=== PATIENT | female | born 1995 | race Caucasian/White ===

== ENCOUNTER 2018-11-19 12:28 | Emergency (ER) | payer OTHER ==
[2018-11-19] MEDS ORDERED: NA CHLORIDE 0.9% 1,000 ML ONE (14:16)
[2018-11-19 14:26] LABS: Absolute Monocytes 0.5 K/uL (0.1-1.3); Absolute Neutrophil 9.6 K/uL (1.8-8.0); Basophils % 0.1 % (0-1.3); Hematocrit 31.2 % (36.0-45.0); Lymphocytes % 8.7 % (15.3-44.8); MPV 10.1 fL (7.6-11.3); Monocytes % 4.3 % (3.3-12.3); RBC Red Blood Cell Count 3.44 M/uL (3.86-4.86)
[2018-11-19 14:43] LABS: ALT/SGPT 59 U/L (12-78); AST/SGOT 56 U/L (15-37); Albumin 3.1 g/dL (3.4-5.0); Alkaline Phosphatase 83 U/L (45-117); BUN Blood Urea Nitrogen 7 mg/dL (7-18); Bicarbonate 23 mmol/L (21-32); Bilirubin Direct 0.4 mg/dL (0-0.2); Bilirubin Total 0.8 mg/dL (0.2-1.0); Glucose Level 81 mg/dL (74-106); Lipase 65 U/L (73-393); Potassium 3.7 mmol/L (3.5-5.1); Protein, Total 6.7 g/dL (6.4-8.2); Sodium Level 142 mmol/L (136-145)
[2018-11-19 14:54] LABS: Urine Blood TRACE (NEG); Urine Glucose NEGATIVE (NEG); Urine Protein 1+ (NEG)
[2018-11-19 15:04] LABS: Urine RBC <5 /HPF (NONE SEEN)
[2018-11-19 15:05] LABS: Urine Bacteria 20-50 /HPF (<20); Urine Mucus 1+ /HPF (NONE SEEN)
[2018-11-19 15:07] LABS: Urine Culture Reflex Order REFLEXED
--- NOTE | 2018-11-19 15:07 | RAD REPORT ---
EXAM DESCRIPTION: US - Abdomen Exam Limited - 11/19/2018 2:26 pm CLINICAL HISTORY: Abdominal pain. COMPARISON: None. FINDINGS: The gallbladder is distended. Multiple gallstones are present. The gallbladder wall is upp er limits normal thickness Common bile duct measures 7 millimeters IMPRESSION: Cholelithiasis with gallbladder distention Mild dilatation of the common bile duct may indicate a nonvisualized stone within the duct
--- NOTE | 2018-11-19 15:37 | EDPHYS ---
Physician Documentation [facility] Name: Rosalia Sheehan Age: 23 yrs Sex: Female : 1995 Arrival Date: 11/19/2018 Time: 12:30 Bed 8 Private MD: Michael Beltran B ED Physician Shadi Daniels HPI: 11/19 15:00 This 23 yrs old Female presents to ER via Wheelchair with complaints of pm1 Abdominal pain. 15:00 The patient presents with abdominal pain in the epigastric area. Onset: The pm1 symptoms/episode began/occurred today. The symptoms radiate to back. Associated signs and symptoms: Pertinent positives: nausea and vomiting, Pertinent negatives: chest pain, constipation, diarrhea, fever, shortness of breath. The symptoms are described as sharp. Modifying factors: The symptoms are alleviated by nothing, the symptoms are aggravated by Onset 2 hours after eating. Severity of pain: in the emergency department the pain has improved mildly, is a 8 / 10. The patient has experienced similar episodes in the past, a few times, prior to , but did not last as long. Patient evaluated by L\T\D prior to arrival and cleared for evaluation in the ER. . care with Dr. Beltran. IUP with U/S OB Complete on 11/01/2018. 18 weeks and 5 days. Historical: - Allergies: 12:38 No Known Allergies; sv - PMHx: 12:38 None; sv - PSHx: 12:38 None; sv - Immunization history:: Flu vaccine is not up to date. - Social history:: Smoking status: Patient/guardian denies using tobacco. - Ebola Screening: : No symptoms or risks identified at this time. ROS: 15:00 Constitutional: Negative for fever, chills, and weight loss, Eyes: Negative for injury, pm1 pain, redness, and discharge, ENT: Negative for injury, pain, and discharge, Neck: Negative for injury, pain, and swelling, Cardiovascular: Negative for chest pain, palpitations, and edema, Respiratory: Negative for shortness of breath, cough, wheezing, and pleuritic chest pain. 15:00 Back: Negative for injury and pain, : Negative for injury, bleeding, discharge, and swelling, MS/Extremity: Negative for injury and deformity, Skin: Negative for injury, rash, and discoloration, Neuro: Negative for headache, weakness, numbness, tingling, and seizure. 15:00 Abdomen/GI: Positive for abdominal pain, nausea and vomiting, Negative for diarrhea. Exam: 15:00 Constitutional: This is a well developed, well nourished patient who is awake, alert, pm1 and in no acute distress. Head/Face: Normocephalic, atraumatic. Eyes: Pupils equal round and reactive to light, extra-ocular motions intact. Lids and lashes normal. Conjunctiva and sclera are non-icteric and not injected. Cornea within normal limits. Periorbital areas with no swelling, redness, or edema. ENT: Nares patent. No nasal discharge, no septal abnormalities noted. Tympanic membranes are normal and external auditory canals are clear. Oropharynx with no redness, swelling, or masses, exudates, or evidence of obstruction, uvula midline. Mucous membranes moist. Neck: Trachea midline, no thyromegaly or masses palpated, and no cervical lymphadenopathy. Supple, full range of motion without nuchal rigidity, or vertebral point tenderness. No Meningismus. Chest/axilla: Normal chest wall appearance and motion. Nontender with no deformity. No lesions are appreciated. Cardiovascular: Regular rate and rhythm with a normal S1 and S2. No gallops, murmurs, or rubs. Normal PMI, no JVD. No pulse deficits. Respiratory: Lungs have equal breath sounds bilaterally, clear to auscultation and percussion. No rales, rhonchi or wheezes noted. No increased work of breathing, no retractions or nasal flaring. 15:00 Back: No spinal tenderness. No costovertebral tenderness. Full range of motion. Skin: Warm, dry with normal turgor. Normal color with no rashes, no lesions, and no evidence of cellulitis. MS/ Extremity: Pulses equal, no cyanosis. Neurovascular intact. Full, normal range of motion. 15:00 Abdomen/GI: Inspection: gravid appearance, is noted, Bowel sounds: normal, Palpation: soft, moderate abdominal tenderness, in the epigastric area and right upper quadrant, rebound tenderness, is not appreciated. 15:00 Neuro: Orientation: is normal, Motor: is normal, moves all fours. Vital Signs: 12:39 BP 107 / 61; Pulse 73; Resp 16; Temp 98.5; Pulse Ox 100% ; Weight 74.84 kg; Height 5 sv ft. 3 in. (160.02 cm); Pain 8/10; 12:39 Body Mass Index 29.23 (74.84 kg, 160.02 cm) sv MDM: 13:37 Patient medically screened. pm1 15:35 Data reviewed: vital signs. Data interpreted: Pulse oximetry: on room air is 100 %. pm1 Interpretation: normal. Counseling: I had a detailed discussion with the patient and/or guardian regarding: the historical points, exam findings, and any diagnostic results supporting the discharge/admit diagnosis, lab results, radiology results, the need to transfer to another facility, for higher level of care, [facility] does not immediately have the required specialist. 16:00 Physician consultation: [facility] OB Nate was contacted at 15:51, regarding regarding pm1 transfer, patient's condition, and will see patient. 16:00 ED course: Transfer for lack of GI and high heel builder. pm1 11/19 13:43 Order name: Hepatic Function; Complete Time: 15:02 pm1 11/19 13:43 Order name: Basic Metabolic Panel; Complete Time: 15:02 pm1 11/19 13:43 Order name: CBC with Diff pm1 11/19 13:43 Order name: Lipase; Complete Time: 15:02 pm1 11/19 13:43 Order name: Urine Microscopic Only; Complete Time: 15:09 pm1 11/19 14:33 Order name: CBC Smear Scan [facility] 11/19 13:43 Order name: IV Saline Lock; Complete Time: 14:13 pm11/19 13:43 Order name: US Abdomen Limited; Complete Time: 15:09 pm1 11/19 14:47 Order name: Urine Dipstick--Ancillary (enter results); Complete Time: 15:02 eb 11/19 14:47 Order name: Urine --Ancillary (enter results); Complete Time: 15:02 eb 11/19 13:43 Order name: Labs collected and sent; Complete Time: 14:13 pm1 11/19 13:43 Order name: Urine Dipstick-Ancillary (obtain specimen); Complete Time: 14:49 pm11/19 14:37 Order name: NPO; Complete Time: 14:42 pm1 Administered Medications: 14:42 Drug: NS 0.9% 1000 ml Route: IV; Rate: 1000 ml; Site: right antecubital; sg 15:40 Follow up: Response: No adverse reaction; IV Status: Completed infusion; IV Intake: sg 990ml 15:50 Drug: Phenergan 12.5 mg Route: IVP; Site: right antecubital; sg 15:50 Drug: morphine 4 mg Route: IVP; Site: right antecubital; sg 15:50 Drug: Rocephin 1 grams Route: IV; Rate: calculated rate; Site: right antecubital; sg Disposition: 11/19/18 15:36 Transfer ordered to [facility]. Diagnosis is Choledocholithiasis. - Reason for transfer: Higher level of care. - Accepting physician is [facility]. - Condition is Stable. - Problem is new. - Symptoms have improved. Addendum: 11/22/2018 07:43 Co-signature as Attending Physician, Shadi Daniels MD I agree with the assessment and k dr plan of care. Signatures: Dispatcher [employer] Rosalia Mallory RN RN Mau Larsen RN RN sg Shadi Daniels MD MD [facility] Gertrudis Reyes RN RN aa5 Jose Fagan NP DIAMOND WHEEL EDGER pm1 Corrections: (The following items were deleted from the chart) 11/19 16:52 15:36 11/19/2018 15:36 Transfer ordered to [facility]. Diagnosis is aa5 Choledocholithiasis. Reason for transfer: Higher level of care. Accepting physician is [facility]. Condition is Stable. Problem is new. Symptoms have improved. pm1
--- NOTE | 2018-11-19 15:37 | ER ---
Nurse's Notes [facility] Name: Rosalia Sheehan Age: 23 yrs Sex: Female : 1995 Arrival Date: 11/19/2018 Time: 12:30 Bed 8 Private MD: Michael Beltran B Diagnosis: Choledocholithiasis Presentation: 11/19 12:36 Presenting complaint: Patient states: epigastric pain that radiates to the back, pt is sv 21 wks and was cleared in L\T\D today. Transition of care: patient was not received from another setting of care. Onset of symptoms was November 19, 2018 at 00:30. Care prior to arrival: Care prior to arrival: Medication(s) given: Phenergan, 50 mg IM given in L\T\D. 12:36 Method Of Arrival: Wheelchair sv 12:36 Acuity: CESAR 3 sv 14:15 Risk Assessment: Do you want to hurt yourself or someone else? Patient reports no hb desire to harm self or others. Initial Sepsis Screen: Does the patient meet any 2 criteria? No. Patient's initial sepsis screen is negative. Does the patient have a suspected source of infection? No. Patient's initial sepsis screen is negative. Historical: - Allergies: 12:38 No Known Allergies; sv - PMHx: 12:38 None; sv - PSHx: 12:38 None; sv - Immunization history:: Flu vaccine is not up to date. - Social history:: Smoking status: Patient/guardian denies using tobacco. - Ebola Screening: : No symptoms or risks identified at this time. Screenin:13 Abuse screen: Denies threats or abuse. Denies injuries from another. Nutritional hb screening: No deficits noted. Tuberculosis screening: No symptoms or risk factors identified. Fall Risk None identified. Assessment: 14:01 General: Appears in no apparent distress. Behavior is calm, cooperative. Pain: Pain hb currently is 8 out of 10 on a pain scale. Neuro: Level of Consciousness is awake, alert, obeys commands, Oriented to person, place, time, situation. Cardiovascular: Capillary refill < 3 seconds Patient's skin is warm and dry. Respiratory: Airway is patent Respiratory effort is even, unlabored, Respiratory pattern is regular, symmetrical, Breath sounds are clear bilaterally. GI: Abdomen is non-distended, Bowel sounds present X 4 quads. Abd is soft and non tender X 4 quads. Reports upper abdominal pain, nausea. : No signs and/or symptoms were reported regarding the genitourinary system. EENT: No signs and/or symptoms were reported regarding the EENT system. Derm: Skin is intact, is healthy with good turgor. Musculoskeletal: No signs and/or symptoms reported regarding the musculoskeletal system. 15:40 Reassessment: Patient appears in no apparent distress at this time. Patient and/or sg family updated on plan of care and expected duration. Pain level reassessed. Patient is alert, oriented x 3, equal unlabored respirations, skin warm/dry/pink. awaiting acceptance at receiving facility at this time, pt and pt daughter stated understanding Patient states symptoms have not improved. 17:17 Reassessment: Patient appears in no apparent distress at this time. Patient and/or sg family updated on plan of care and expected duration. Pain level reassessed. pt dark colored leather like sandals were given to security threat analyst due to pt left the sandal behind during transfer to [facility]. Vital Signs: 12:39 BP 107 / 61; Pulse 73; Resp 16; Temp 98.5; Pulse Ox 100% ; Weight 74.84 kg; Height 5 sv ft. 3 in. (160.02 cm); Pain 8/10; 12:39 Body Mass Index 29.23 (74.84 kg, 160.02 cm) sv ED Course: 12:30 Patient arrived in ED. as 12:31 Michael Beltran MD is Private Physician. as 12:37 Triage completed. sv 12:39 Arm band placed on. sv 13:32 Jose Fagan NP is PHCP. pm1 13:32 Shadi Daniels MD is Attending Physician. pm1 14:13 Patient has correct armband on for positive identification. Placed in gown. Bed in low hb position. Call light in reach. Side rails up X 1. 14:13 Inserted saline lock: 20 gauge in right antecubital area, using aseptic technique. hb Blood collected. 14:27 US Abdomen Limited In Process Unspecified. EDMS 14:27 Ultrasound completed. Patient moved back from ultrasound. aa4 14:27 Mau Larsen, BRADLEY is Primary Nurse. sg 15:39 initiated a transfer with Alisia at the [facility] transfer center. eb 15:51 connected the agronomy manager doctor from [facility] with Jose MARTINEZ for patient transfer consulation.eb 15:58 administrative approval given by Alisia Akers Nursing Assistant, Dr. Sullivan has eb accepted the patient to go to the L\T\D/ Report to be called to [phone]. 16:16 No provider procedures requiring assistance completed. Patient transferred, IV remains sg in place. intact, No redness/swelling at site. Administered Medications: 14:42 Drug: NS 0.9% 1000 ml Route: IV; Rate: 1000 ml; Site: right antecubital; sg 15:40 Follow up: Response: No adverse reaction; IV Status: Completed infusion; IV Intake: sg 990ml 15:50 Drug: Phenergan 12.5 mg Route: IVP; Site: right antecubital; sg 15:50 Drug: morphine 4 mg Route: IVP; Site: right antecubital; sg 15:50 Drug: Rocephin 1 grams Route: IV; Rate: calculated rate; Site: right antecubital; sg Intake: 15:40 IV: 990ml; Total: 990ml. sg Outcome: 15:36 ER care complete, transfer ordered by MD. pm1 16:16 Transferred by ground EMS to [facility], Transfer form sg completed. 16:16 Condition: stable 16:16 Instructed on follow up and referral plans. the need for transfer, safety practices, Demonstrated understanding of instructions. 16:52 Patient left the ED. aa5 Signatures: Dispatcher [employer] EDRosalia Disla RN RN sv Gay, Steven, RN RN sg Martinez, Amelia as Frazier, Amanda aa4 Gertrudis Reyes RN RN aa5 Jose Fagan NP MANAGER OF PATIENT pm1 Tabby Santillan RN RN hb Botello, Elizabeth eb Corrections: (The following items were deleted from the chart) 12:39 12:36 Care prior to arrival: kenny cox
[2018-11-19] MEDS ORDERED: PROMETHAZINE 25 MG/ML VIAL ONE (15:57)
[2018-11-19] MEDS ORDERED: MORPHINE 4 MG/ML SYR ONE (15:58)
[2018-11-19] MEDS ORDERED: CEFTRIAXONE/SWI 1gm 1 GM/10 ML SYR ONE (15:58)
[2018-11-19 16:57] VITALS: BP 107/61; TEMP 98.5; O2SAT 100
[2018-11-19 17:15] LABS: Blood Morphology Comment NOT SEEN (NOT SEEN); Platelet Estimate ADEQ; Urine White Blood Cell Casts OK
== END 2018-11-19 16:52 | disposition short-term general hospital (02) ==
LOC: ER 12:28
DX: K80.50 Calculus of bile duct without cholangitis or cholecystitis without obstruction (principal); Z3A.18 18 weeks gestation of pregnancy
CPT/HCPCS: 36415; 76705; 80048; 80076; 81003; 81015; 81025; 83690; 85025; 96361; 96374; 96375; 99285; J0696; J2550; J7030

== ENCOUNTER 2019-03-23 00:16 | Inpatient (IN) | payer OTHER ==
--- OUTSIDE RECORDS SUMMARY | 2019-03-23 04:15 | XMS REPORT ---
:1995 [facility] Address [address] [place] [address] [place] [id number] Care Team Providers Name Role Phone Unavailable Unavailable Unavailable Problems This patient has no known problems. Allergies, Adverse Reactions, Alerts This patient has no known allergies or adverse reactions. Medications This patient has no known medications.
[2019-03-23] MEDS ORDERED: MEPERIDINE HCL 25 MG/0.5 ML IV PRN (04:26)
[2019-03-23] MEDS ORDERED: PROMETHAZINE 25 MG/ML VIAL IM PRN (04:26)
[2019-03-23] MEDS ORDERED: CARBOPROST TROME 250 MCG/ML IM PRN (04:26)
[2019-03-23] MEDS ORDERED: METHYLERGONOVINE 0.2MG/ML AMP IM PRN (04:26)
[2019-03-23] MEDS ORDERED: Ringers Lactate 1,000 ML IV PRN (04:26)
[2019-03-23] MEDS ORDERED: OXYTOCIN/LR 20 UNIT/1,000 ML BAG IV SCH ×2 (05:00→11:00)
[2019-03-23] MEDS ORDERED: Ringers Lactate 1,000 ML IV SCH (05:00)
[2019-03-23 05:44] VITALS: BMI 31.3
[2019-03-23 07:07] LABS: RPR Titer ND
[2019-03-23 07:11] LABS: Absolute Lymphocytes (CBC) 1.7 K/uL (0.7-4.9); Absolute Monocytes 0.4 K/uL (0.1-1.3); Absolute Neutrophil 4.2 K/uL (1.8-8.0); Basophils % 0.4 % (0-1.3); Eosinophils % 0.9 % (0-4.4); Hematocrit 31.7 % (36.0-45.0); Lymphocytes % 26.3 % (15.3-44.8); MPV 10.8 fL (7.6-11.3); Monocytes % 5.9 % (3.3-12.3); RBC Red Blood Cell Count 3.49 M/uL (3.86-4.86)
[2019-03-23 07:15] LABS: Urine Appearance CLOUDY; Urine Bilirubin NEGATIVE (NEG); Urine Blood NEGATIVE (NEG); Urine Color YELLOW; Urine Glucose NEGATIVE (NEG); Urine Protein NEGATIVE (NEG); Urine Specific Gravity 1.015 (1.005-1.030)
[2019-03-23 07:25] LABS: Urine Microscopic Reflex ORDER UMIC
[2019-03-23 07:39] LABS: Urine Bacteria 20-50 /HPF (<20); Urine Culture Reflex Order REFLEXED; Urine Mucus 2+ /HPF (NONE SEEN); Urine RBC <5 /HPF (NONE SEEN)
[2019-03-23] MEDS ORDERED: BUTORPHANOL 1 MG/ML INJ IV PRN (08:15)
[2019-03-23] MEDS ORDERED: FENTANYL CITR 100 MCG/2 ML IV ONE (09:41)
[2019-03-23] MEDS ORDERED: ROPIVACAINE HCL 2 MG/ML 100ML IV ONE (09:42)
[2019-03-23] MEDS ORDERED: ROPIVACAINE HCL 100 ML IV ONE (09:42)
[2019-03-23] MEDS ORDERED: LIDOCAINE 1% 20 ML MDV ONE (10:12)
[2019-03-23] MEDS ORDERED: Oxycodone HCl/Acetaminophen 1 TAB TAB PO PRN ×2 (10:16)
[2019-03-23] MEDS ORDERED: DIPHENHYDRAMINE 25 MG TAB/CAP PO PRN (10:16)
[2019-03-23] MEDS ORDERED: DOCUSATE NA/SENNA CONC 1 TAB PO PRN (10:16)
[2019-03-23] MEDS ORDERED: ACETAMINOPHEN 500 MG TAB PO PRN (10:16)
[2019-03-23] MEDS ORDERED: IBUPROFEN 200 MG TAB PO PRN (10:16)
[2019-03-23] MEDS ORDERED: BISACODYL 10 MG RECTAL SUPP RECT PRN (10:16)
--- NOTE | 2019-03-23 14:42 | OP ---
Surgeon: Michael Beltran MD A 24-year-old, 2, para 1, 39 weeks gestation. Rupture membranes this morning at 2.5 cm, went rapidly to complete. Second stage of 10 minutes or less. Spontaneous vaginal delivery of an estima kassi 8-pound male . Nuchal cord loosely x1. Apgars 9 and 9. No episiotomy. No laceration. S chultze delivery of the placenta, which was inspected and noted to be intact and normal. Less than 3 50 cc blood loss. Immune to Rubella. Negative beta strep screen. Rh positive. Tolerated all proce dures well. Final Diagnoses: Term intrauterine , 39 weeks. Vaginal delivery. Nuchal cord x1 loosely. BRENDA/SALVATORE Voice ID: [id number] Report ID: [id number]
[2019-03-23 21:02] LABS: RPR (Rapid Plasma Reagin) NON-REACT (NON-REACT)
[2019-03-24 07:57] VITALS: TEMP 98
--- NOTE | 2019-03-24 08:08 | PREOPHP ---
Date of Admission: 03/23/2019 Rosalia Sheehan 24-year-old 2, para 1, 39 weeks' gestation, Rh positive. Immune to Rubell a. Negative beta strep screen. Approximately 2.5 to 3 cm, rupture of membranes, clear fluid. Antic ipate natural childbirth which she had with her first delivery although she knows she has the option of asking for an epidural if she requests one. Full labor talk given. BRENDA/SALVATORE Voice ID: [id number]
[2019-03-24 12:41] VITALS: BP 110/62
--- NOTE | 2019-03-24 13:02 | DS ---
Date of Discharge: 03/24/2019 A 24-year-old 2, para 1, 39 weeks gestation delivered of an estimated 8-pound male infant, Ap gars 9 and 9. No episiotomy. No laceration. Nuchal cord x1 loosely. Schultze delivery of the plac enta. Estimated blood loss 350 cc or less. Rh positive, immune to Rubella. Negative beta strep scr een. ; afebrile, ambulating and voiding. Lochia is normal. Will be dismissed later this morning to report back to my office in 6 weeks. To report any temperature elevation of 100 degrees o r greater, severe pain, heavy bleeding, or any other type of abnormalities. Dismissed with tramadol, although she may elect to take Motrin instead. She has had her Tdap immunization during the pregnan cy. Final Diagnoses: Term intrauterine , 39 weeks. Vaginal delivery. Nuchal cord x1 loosely. BRENDA/SALVATORE Voice ID: [id number] Report ID: [id number]
[2019-03-26 05:17] LABS: HBsAG Nonreactive (Nonreactive)
== END 2019-03-24 12:40 | disposition home or self-care (01) | DRG 807 ==
LOC: 2ND-WC 04:13
PROVIDERS: ADMIT Specialist; ATTEND Specialist
PROC: 10E0XZZ Delivery of Products of Conception, External Approach (ICD-10-PCS; principal; 2019-03-23)
DX: O69.81X0 Labor and delivery complicated by cord around neck, without compression, not applicable or unspecified (principal); Z37.0 Single live birth; Z3A.39 39 weeks gestation of pregnancy
CPT/HCPCS: 36415; 81003; 81015; 85025; 86592; 86850; 86900; 86901; 87086; 87088; 87340; J0595; J2210; J2550; J2590

== ENCOUNTER 2019-04-26 18:53 | Inpatient (IN) | payer OTHER ==
--- OUTSIDE RECORDS SUMMARY | 2019-04-26 18:55 | XMS REPORT ---
:1995 [facility] Address [address] [place] [address] [place] [id number] Care Team Providers Name Role Phone Unavailable Unavailable Unavailable Problems This patient has no known problems. Allergies, Adverse Reactions, Alerts This patient has no known allergies or adverse reactions. Medications This patient has no known medications.
[2019-04-26] MEDS ORDERED: ONDANSETRON 4 MG/2 ML VIAL ONE (19:28)
[2019-04-26] MEDS ORDERED: MORPHINE 4 MG/ML SYR ONE (19:28)
[2019-04-26 19:31] LABS: Absolute Lymphocytes (CBC) 1.6 K/uL (0.7-4.9); Basophils % 0.4 % (0-1.3); Eosinophils % 0.3 % (0-4.4); Lymphocytes % 16.6 % (15.3-44.8); Monocytes % 4.8 % (3.3-12.3); RBC Red Blood Cell Count 4.43 M/uL (3.86-4.86)
[2019-04-26 19:45] LABS: Bilirubin Direct 0.2 mg/dL (0-0.2); Bilirubin Total 0.5 mg/dL (0.2-1.0); Protein, Total 7.8 g/dL (6.4-8.2)
--- NOTE | 2019-04-26 20:07 | RAD REPORT ---
EXAM DESCRIPTION: US - Abdomen Exam Limited - 04/26/2019 7:52 pm CLINICAL HISTORY: ABD PAIN COMPARISON: Abdomen Exam Limited dated 11/19/2018 FINDINGS: The gallbladder demonstrates multiple shadowing gallstones. No pericholecystic fluid or ga llbladder wall thickening. The common bile duct is upper limit of normal measuring 7 mm, however unch anged from prior study. The liver demonstrates no findings of intrahepatic biliary dilatation. IMPRESSION: Cholelithiasis.
[2019-04-26] MEDS ORDERED: FAMOTIDINE 20 MG/2 ML VIAL IV ONE (20:27)
[2019-04-26] MEDS ORDERED: NA CHLORIDE 0.9% 1,000 ML ONE (20:27)
--- NOTE | 2019-04-26 20:28 | EDPHYS ---
Physician Documentation [facility] Name: Rosalia Sheehan Age: 24 yrs Sex: Female : 1995 Arrival Date: 04/26/2019 Time: 18:54 Bed 14 Private MD: ED Physician Sebastien Vela HPI: 04/26 20:23 This 24 yrs old Female presents to ER via Ambulatory with complaints of rose Gallbladder. 20:23 The patient presents with abdominal pain in the epigastric area, in the upper abdomen. rose Onset: The symptoms/episode began/occurred just prior to arrival. The symptoms do not radiate. Associated signs and symptoms: none. Modifying factors: The symptoms are alleviated by nothing, the symptoms are aggravated by food. Severity of pain: At its worst the pain was moderate in the emergency department the pain has improved. The patient has not experienced similar symptoms in the past. Historical: - Allergies: 18:59 No Known Allergies; hj - PMHx: 18:59 None; hj - PSHx: 18:59 None; hj - Family history:: not pertinent. ROS: 20:23 Constitutional: Negative for fever, chills, and weight loss, Eyes: Negative for injury, rose pain, redness, and discharge, ENT: Negative for injury, pain, and discharge, Neck: Negative for injury, pain, and swelling, Cardiovascular: Negative for chest pain, palpitations, and edema, Respiratory: Negative for shortness of breath, cough, wheezing, and pleuritic chest pain, Back: Negative for injury and pain, : Negative for injury, bleeding, discharge, and swelling, MS/Extremity: Negative for injury and deformity, Skin: Negative for injury, rash, and discoloration, Neuro: Negative for headache, weakness, numbness, tingling, and seizure, Psych: Negative for depression, anxiety, suicide ideation, homicidal ideation, and hallucinations, Allergy/Immunology: Negative for hives, rash, and allergies, Endocrine: Negative for neck swelling, polydipsia, polyuria, polyphagia, and marked weight changes, Hematologic/Lymphatic: Negative for swollen nodes, abnormal bleeding, and unusual bruising. 20:23 Abdomen/GI: Positive for abdominal pain, of the epigastric area and right upper quadrant. Exam: 20:23 Constitutional: This is a well developed, well nourished patient who is awake, alert, rose and in no acute distress. Head/Face: Normocephalic, atraumatic. Eyes: Pupils equal round and reactive to light, extra-ocular motions intact. Lids and lashes normal. Conjunctiva and sclera are non-icteric and not injected. Cornea within normal limits. Periorbital areas with no swelling, redness, or edema. ENT: Nares patent. No nasal discharge, no septal abnormalities noted. Tympanic membranes are normal and external auditory canals are clear. Oropharynx with no redness, swelling, or masses, exudates, or evidence of obstruction, uvula midline. Mucous membranes moist. Neck: Trachea midline, no thyromegaly or masses palpated, and no cervical lymphadenopathy. Supple, full range of motion without nuchal rigidity, or vertebral point tenderness. No Meningismus. Chest/axilla: Normal chest wall appearance and motion. Nontender with no deformity. No lesions are appreciated. Cardiovascular: Regular rate and rhythm with a normal S1 and S2. No gallops, murmurs, or rubs. Normal PMI, no JVD. No pulse deficits. Respiratory: Lungs have equal breath sounds bilaterally, clear to auscultation and percussion. No rales, rhonchi or wheezes noted. No increased work of breathing, no retractions or nasal flaring. Back: No spinal tenderness. No costovertebral tenderness. Full range of motion. Female : Normal external genitalia. Skin: Warm, dry with normal turgor. Normal color with no rashes, no lesions, and no evidence of cellulitis. MS/ Extremity: Pulses equal, no cyanosis. Neurovascular intact. Full, normal range of motion. Neuro: Awake and alert, GCS 15, oriented to person, place, time, and situation. Cranial nerves II-XII grossly intact. Motor strength 5/5 in all extremities. Sensory grossly intact. Cerebellar exam normal. Normal gait. Psych: Awake, alert, with orientation to person, place and time. Behavior, mood, and affect are within normal limits. 20:23 Abdomen/GI: Inspection: abdomen appears normal, Bowel sounds: normal, Palpation: moderate abdominal tenderness, in the epigastric area and right upper quadrant, Liver: no appreciated palpable abnormalities, Hernia: not appreciated. Vital Signs: 18:59 BP 109 / 55; Pulse 50; Resp 18; Temp 97.2(TE); Pulse Ox 100% on R/A; Weight 74.84 kg; hj Height 5 ft. 3 in. (160.02 cm); Pain 10/10; 19:30 BP 105 / 63; Pulse 49; Resp 16; Pulse Ox 98% on R/A; jb4 21:02 BP 122 / 87; Pulse 59; Resp 16; Pulse Ox 98% on R/A; jb4 18:59 Body Mass Index 29.23 (74.84 kg, 160.02 cm) hj MDM: 19:09 Patient medically screened. [facility] 20:25 Data reviewed: vital signs, nurses notes, lab test result(s), CBC, electrolytes, [facility] hepatic panel, urinalysis. 04/26 19:11 Order name: Basic Metabolic Panel [facility] 04/26 19:11 Order name: CBC with Diff [facility] 04/26 19:11 Order name: Creatinine for Radiology; Complete Time: 20:06 [facility] 04/26 19:11 Order name: Hepatic Function; Complete Time: 20:06 [facility] 04/26 19:11 Order name: Lipase; Complete Time: 20:06 [facility] 04/26 19:12 Order name: Basic Metabolic Panel; Complete Time: 20:06 [facility] 04/26 19:11 Order name: US Abdomen Limited; Complete Time: 20:20 [facility] 04/26 19:12 Order name: CBC with Automated Diff; Complete Time: 20:06 [facility] 04/26 21:14 Order name: Urine Dipstick--Ancillary (enter results) [facility] 04/26 21:14 Order name: Urine --Ancillary (enter results) [facility] 04/26 19:11 Order name: IV Saline Lock; Complete Time: 19:42 [facility] 04/26 19:11 Order name: Labs collected and sent; Complete Time: 19:42 [facility] 04/26 19:11 Order name: Urine Dipstick-Ancillary (obtain specimen); Complete Time: 21:05 [facility] 04/26 19:11 Order name: Urine Test (obtain specimen); Complete Time: 21:05 [facility] 04/26 21:54 Order name: CONS Physician Consult [facility] 04/26 21:54 Order name: CONS Physician Consult [facility] 04/26 21:54 Order name: CONS Physician Consult [facility] 04/26 21:54 Order name: NPO EDMO Administered Medications: 19:06 Drug: Zofran 4 mg Route: IVP; Site: left antecubital; jb4 19:20 Follow up: Response: No adverse reaction; Nausea is decreased jb4 19:08 Drug: morphine 4 mg Route: IVP; Site: left antecubital; jb4 19:20 Follow up: Response: No adverse reaction; Pain is decreased jb4 20:10 Drug: NS 0.9% 1000 ml Route: IV; Rate: 1 bolus; Site: left antecubital; jb4 20:10 Drug: Pepcid 20 mg Route: IVP; Site: left antecubital; jb4 20:40 Follow up: Response: No adverse reaction jb4 20:40 Drug: Zosyn 3.375 grams Route: IVPB; Infused Over: 60 mins; Site: left antecubital; jb4 21:40 Follow up: Response: No adverse reaction; IV Status: Completed infusion; IV Intake: jb4 100ml Disposition: 04/26/19 22:30 Patient has left against medical advice. Impression: Cholecystitis, Cholelithiasis, Abdominal tenderness. - Patients states they are going to Home. - Condition is Fair. - Discharge Instructions: Abdominal Pain, Adult, Cholelithiasis, Cholelithiasis, [id number], Abdominal Pain, Adult, [id number]. Follow up: Private Physician; When: Upon discharge from the Emergency Department; Reason: Recheck today's complaints, Continuance of care, Re-evaluation by your physician. - Problem is new. - Symptoms have improved. Signatures: Dispatcher [employer] EDMS Chantel Morales RN RN mw Anderson, Corey, MD MD cha Joaquin, Henry, RN RN hj Bryson, James, RN RN jb4 Corrections: (The following items were deleted from the chart) 22:19 20:27 Hospitalization Ordered by Akbar Purcell MD for Inpatient Admission. Preliminary anita diagnosis is Abdominal tenderness; Cholelithiasis; Cholecystitis. Bed requested for Telemetry/MedSurg (Inpatient). Status is Inpatient Admission. Condition is Stable. Problem is new. Symptoms have improved. UTI on Admission? No. rose 22:30 22:19 04/26/2019 20:27 Hospitalization Ordered by Akbar Purcell MD for Inpatient [facility] Admission. Preliminary diagnosis is Abdominal tenderness; Cholelithiasis; Cholecystitis. Bed requested for Telemetry/MedSurg (Inpatient). Status is Inpatient Admission. Condition is Stable. Problem is new. Symptoms have improved. UTI on Admission? No. mw 22:35 22:30 04/26/2019 22:30 Patients has left against medical advice. Impression: jb4 Cholecystitis; Cholelithiasis; Abdominal tenderness. Patient states they are going to Home. Condition is Fair. Follow up: Private Physician; When: Upon discharge from the Emergency Department; Reason: Recheck today's complaints, Continuance of care, Re-evaluation by your physician. Problem is new. Symptoms have improved. rose
--- NOTE | 2019-04-26 20:28 | ER ---
Nurse's Notes [facility] Name: Rosalia Sheehan Age: 24 yrs Sex: Female : 1995 Arrival Date: 04/26/2019 Time: 18:54 Bed 14 Private MD: Diagnosis: Cholecystitis;Cholelithiasis;Abdominal tenderness Presentation: 04/26 18:56 Presenting complaint: Patient states: around 3:30 pm today, i think its my gallbladder hj that is acting up again, i knew it because while i was they couldn't take it out, just gave a month ago reports N/V; denies diarrhea and constipation;. Transition of care: patient was not received from another setting of care. Onset of symptoms was April 26, 2019. Risk Assessment: Do you want to hurt yourself or someone else? Patient reports no desire to harm self or others. Initial Sepsis Screen: Does the patient meet any 2 criteria? No. Patient's initial sepsis screen is negative. Does the patient have a suspected source of infection? No. Patient's initial sepsis screen is negative. Care prior to arrival: None. 18:56 Method Of Arrival: Ambulatory 18:56 Acuity: CESAR 3 hj Historical: - Allergies: 18:59 No Known Allergies; hj - PMHx: 18:59 None; hj - PSHx: 18:59 None; hj - Family history:: not pertinent. Screenin:10 Abuse screen: Denies threats or abuse. Nutritional screening: No deficits noted. jb4 Tuberculosis screening: No symptoms or risk factors identified. Fall Risk IV access (20 points). Total Finnegan Fall Scale indicates No Risk (0-24 pts). Assessment: 19:01 General: Appears in no apparent distress. uncomfortable, Behavior is cooperative, jb4 appropriate for age. Pain: Complains of pain in umbilical area Pain does not radiate. Pain currently is 10 out of 10 on a pain scale. Quality of pain is described as burning, aching, crampy, pressure, stabbing. Neuro: Level of Consciousness is awake, alert, obeys commands, Oriented to person, place, time, situation. Cardiovascular: Patient's skin is warm and dry. Respiratory: Airway is patent Respiratory effort is even, unlabored, Respiratory pattern is regular, symmetrical. GI: Abdomen is round non-distended, Bowel sounds present X 4 quads. Abd is soft X 4 quads Abd is non tender in suprapubic area and left upper quadrant Abdomen is tender to palpation in epigastric area, umbilical area, right upper quadrant, right lower quadrant and left lower quadrant Reports lower abdominal pain, upper abdominal pain, nausea, vomiting. : No signs and/or symptoms were reported regarding the genitourinary system. EENT: No signs and/or symptoms were reported regarding the EENT system. Derm: Skin is intact, Skin is pink, warm \\T\\ dry. Musculoskeletal: Circulation, motion, and sensation intact. Range of motion: intact in all extremities. 19:57 Reassessment: Patient appears in no apparent distress at this time. Patient and/or jb4 family updated on plan of care and expected duration. Pain level reassessed. Patient is alert, oriented x 3, equal unlabored respirations, skin warm/dry/pink. 21:05 Reassessment: Patient appears in no apparent distress at this time. Patient and/or jb4 family updated on plan of care and expected duration. Pain level reassessed. Patient is alert, oriented x 3, equal unlabored respirations, skin warm/dry/pink. Pt reports breast feeding, asked when she could breast feed next due to morphine administration, instructed to "pump and dump" for 48 hrs after the last dose of morphine. Verbalized understanding of instructions. 22:25 Reassessment: Patient appears in no apparent distress at this time. Patient and/or jb4 family updated on plan of care and expected duration. Pain level reassessed. Patient is alert, oriented x 3, equal unlabored respirations, skin warm/dry/pink. Pt reports wanting to go AMA to be with her . PT informed that symptoms could worsen including worsening pain, increased risk for infection and or , and potential for prolongation of treatment. Pt verbalized understanding of these risk and refused to stay. AMA form signed. PT left ED with . Informed to returned immediately for worsening of symptoms and that if necessary family could stay at the hospital with the patient including the . Vital Signs: 18:59 BP 109 / 55; Pulse 50; Resp 18; Temp 97.2(TE); Pulse Ox 100% on R/A; Weight 74.84 kg; hj Height 5 ft. 3 in. (160.02 cm); Pain 10/10; 19:30 BP 105 / 63; Pulse 49; Resp 16; Pulse Ox 98% on R/A; jb4 21:02 BP 122 / 87; Pulse 59; Resp 16; Pulse Ox 98% on R/A; jb4 18:59 Body Mass Index 29.23 (74.84 kg, 160.02 cm) ED Course: 18:54 Patient arrived in ED. as 18:59 Triage completed. hj 18:59 Arm band placed on left wrist. hj 19:09 Sebastien Vela MD is Attending Physician. rose 19:10 Patient has correct armband on for positive identification. Placed in gown. Bed in low jb4 position. Call light in reach. Side rails up X 1. Pulse ox on. NIBP on. 19:14 Inserted saline lock: 20 gauge in left antecubital area, using aseptic technique. Blood ag4 collected. 19:16 Patient taken to ultrasound. kristopher 19:48 Patient moved back from ultrasound. kristopher 19:53 US Abdomen Limited In Process Unspecified. EDMS 19:55 Augusto Gonzalez, BRADLEY is Primary Nurse. jb4 20:26 Akbar Purcell MD is Hospitalizing Provider. rose 22:00 No provider procedures requiring assistance completed. IV discontinued, intact, jb4 bleeding controlled, No redness/swelling at site. Administered Medications: 19:06 Drug: Zofran 4 mg Route: IVP; Site: left antecubital; jb4 19:20 Follow up: Response: No adverse reaction; Nausea is decreased jb4 19:08 Drug: morphine 4 mg Route: IVP; Site: left antecubital; jb4 19:20 Follow up: Response: No adverse reaction; Pain is decreased jb4 20:10 Drug: NS 0.9% 1000 ml Route: IV; Rate: 1 bolus; Site: left antecubital; jb4 20:10 Drug: Pepcid 20 mg Route: IVP; Site: left antecubital; jb4 20:40 Follow up: Response: No adverse reaction jb4 20:40 Drug: Zosyn 3.375 grams Route: IVPB; Infused Over: 60 mins; Site: left antecubital; jb4 21:40 Follow up: Response: No adverse reaction; IV Status: Completed infusion; IV Intake: jb4 100ml Intake: 21:40 IV: 100ml; Total: 100ml. jb4 Outcome: 20:27 Decision to Hospitalize by Provider. rose 22:25 AMA jb4 22:25 Condition: stable 22:25 Discharge instructions given to patient, family, Instructed on follow up and referral plans. the need for admit, Demonstrated understanding of instructions. 22:35 Patient left the ED. jb4 Signatures: Dispatcher [employer] EDMS Sebastien Vela MD MD cha Martinez, Amelia as Joaquin, Henry RN Arsenio Echols jd, James, RN RN Rafal Bailon ag4 Corrections: (The following items were deleted from the chart) 19:01 18:59 Pulse 50bpm; Resp 18bpm; Pulse Ox 100% RA; Temp 97.2F Temporal; 74.84 kg; Height hj 5 ft. 3 in.; BMI: 29.2; Pain 10/10; hj 19:02 18:59 Pulse 50bpm; Resp 18bpm; Pulse Ox 100% RA; Temp 97.2F Temporal; 74.84 kg; Height hj 5 ft. 3 in.; BMI: 29.2; Pain 10/10; hj 04/27 05:36 07/16 22:00 Reassessment: Patient appears in no apparent distress at this time. Patient jb4 and/or family updated on plan of care and expected duration. Pain level reassessed. Patient is alert, oriented x 3, equal unlabored respirations, skin warm/dry/pink. Pt reports wanting to go AMA to be with her . PT informed that symptoms could worsen including worsening pain, increased risk for infection and or , and potential for prolongation of treatment. Pt verbalized understanding of these risk and refused to stay. AMA form signed. PT left ED with . Informed to returned immediately for worsening of symptoms and that if necessary family could stay at the hospital with the patient including the . jb4
[2019-04-26] MEDS ORDERED: PIPER/TAZO/NS 3.375gm 3.375 GM/100 ML BAG ONE (20:38)
[2019-04-26] MEDS ORDERED: ONDANSETRON 4 MG/2 ML VIAL IV PRN ×2 (21:30→21:37)
[2019-04-26] MEDS ORDERED: ALPRAZOLAM 0.25 MG TABLET PO PRN (21:30)
[2019-04-26] MEDS ORDERED: ACETAMINOPHEN 500 MG TAB PO PRN (21:37)
[2019-04-26] MEDS ORDERED: ZOLPIDEM TARTRATE 5 MG TABLET PO PRN (21:37)
[2019-04-26 21:41] LABS: Urine Blood NEGATIVE (NEG); Urine Glucose NEGATIVE (NEG); Urine Protein 1+ (NEG); Urine pH 7.5 (5.0-7.0)
[2019-04-26] MEDS ORDERED: NA CHLORIDE 0.9% 1,000 ML IV SCH ×2 (22:00)
--- OUTSIDE RECORDS SUMMARY | 2019-04-27 00:15 | XMS REPORT ---
:1995 [facility] Address [address] [place] [address] [place] [id number] Care Team Providers Name Role Phone Unavailable Unavailable Unavailable Problems This patient has no known problems. Allergies, Adverse Reactions, Alerts This patient has no known allergies or adverse reactions. Medications This patient has no known medications.
[2019-04-27] MEDS ORDERED: MORPHINE 4 MG/ML SYR IV PRN (00:20)
[2019-04-27] MEDS ORDERED: NA CHLORIDE 0.9% 1,000 ML ONE (00:35)
[2019-04-27] MEDS ORDERED: MORPHINE 4 MG/ML SYR ONE (00:35)
[2019-04-27] MEDS: NA CHLORIDE 0.9% 1,000 ML IV SCH ×4 (01:08→21:00)
[2019-04-27] MEDS: Levofloxacin500mg IV 500 MG/100 ML BAG IV SCH ×2 (01:09→21:12)
[2019-04-27] MEDS: METRONIDAZOLE 500mg IVPB 500 MG/100 ML BAG IV SCH ×4 (01:09→17:09)
[2019-04-27 02:12] VITALS: O2SAT 97; BMI 29.2
[2019-04-27 05:39] LABS: Urine Appearance CLEAR; Urine Bilirubin NEGATIVE (NEG); Urine Blood 1+ (NEG); Urine Color YELLOW; Urine Glucose NEGATIVE (NEG); Urine Microscopic Reflex ORDER UMIC; Urine Protein NEGATIVE (NEG); Urine Specific Gravity 1.025 (1.005-1.030); Urine pH 5.5 (5.0-7.0)
[2019-04-27 06:30] LABS: Urine Bacteria <20 /HPF (<20); Urine Culture Reflex Order REFLEXED; Urine Mucus SLIGHT /HPF (NONE SEEN)
--- NOTE | 2019-04-27 07:28 | P.HP ---
Certification for Inpatient Patient admitted to: Observation With expected LOS: <2 Midnights Patient will require the following post-hospital care: None Practitioner: I am a practitioner with admitting privileges, knowledge of patient current condition, hospital course, and medical plan of care. Services: Services provided to patient in accordance with Admission requirements found in Title 42 Section 412.3 of the Code of Federal Regulations Patient History Date of Service: 04/27/19 Reason for admission: Abdominal pain/cholelithiasis History of Present Illness: Patient is a 24-year-old female who comes into the hospital with abdominal discomfort. Patient is 6 weeks . She was diagnosed with cholelithiasis with gallbladder distention during the middle of her . However, in light of the fact that she was conservative management was performed at that time. Patient has done well in the interim. She gave to a healthy boy. Her pain started 24 hr ago. She initially came into the ER but had told them she was going to leave. She was almost out of the hospital when her pain suddenly returned. She decided to stay for surgical evaluation. Allergies No Known Allergies Allergy (Verified 04/27/19 00:44) Home Medications: Pnv#67/Iron Ps/FA Cmb#1/Dha [Vitafol Ultra Softgel] 1 cap PO BID 04/27/19 - Past Medical/Surgical History Has patient received pneumonia vaccine in the past: No Diabetic: No -: none -: NVD - Family History Mother Medical History: Stroke Notes: Mother had a drug induced stroke grandfather Medical History: Diabetes - Social History Smoking Status: Former smoker Alcohol use: No CD- Drugs: No Caffeine use: Yes Place of Residence: Home Review of Systems 10-point ROS is otherwise unremarkable Physical Examination - Vital Signs Temperature: 97.7 F Blood Pressure: 134/83 Pulse: 49 Respirations: 20 Pulse Ox (%): 97 - Physical Exam General: Alert, In no apparent distress, Oriented x3 HEENT: Atraumatic, PERRLA, Mucous membr. moist/pink, EOMI, Sclerae nonicteric Neck: Supple, 2+ carotid pulse no bruit, No LAD, Without JVD or thyroid abnormality Respiratory: Clear to auscultation bilaterally, Normal air movement Cardiovascular: Regular rate/rhythm, Normal S1 S2, No murmurs Gastrointestinal: Normal bowel sounds, Soft and benign, Non-distended, No guarding, Tenderness, Rebound Musculoskeletal: No clubbing, No swelling, No tenderness Integumentary: No rashes Neurological: Normal gait, Normal speech, Normal strength at 5/5 x4 extr, Normal tone, Sensation intact, Cranial nerves 3-12 intact, Normal affect Lymphatics: No axilla or inguinal lymphadenopathy - Studies Laboratory Data (last 24 hrs) 04/26/19 19:11: Creatinine 1.10 04/26/19 19:11: WBC 9.7, Hgb 13.4, Hct 40.0, Plt Count 288 04/26/19 19:11: Sodium 142, Potassium 4.0, BUN 12, Creatinine 1.06, Glucose 107 H, Total Bilirubin 0.5, AST 16, ALT 21, Alkaline Phosphatase 80, Lipase 90 Assessment & Plan - Problems (Diagnosis) (1) Cholelithiasis Current Visit: Yes Status: Acute (2) Abdominal pain Current Visit: Yes Status: Acute (3) Hx of acute cholecystitis Current Visit: Yes Status: Acute - Plan 1. Continue with IV hydration 2. Continue with IV antibiotics 3. Continue with pain control 4. NPO 5. General surgery consultation; 6. Monitor CBC, BMP, LFTs and lipase along with electrolytes. 7. GI and DVT prophylaxis Discharge Plan: Home Plan to discharge in: Greater than 2 days - Advance Directives Does patient have a Living Will: No Does patient have a Durable POA for Healthcare: No - Code Status/Comfort Care Code Status Assessed: Yes Code Status: Full Code Critical Care: No Time Spent Managing PTS Care (In Minutes): 45
--- NOTE | 2019-04-27 10:39 | RAD REPORT ---
EXAM DESCRIPTION: MRICholangiogram04/27/2019 10:10 am CLINICAL HISTORY: Abdominal pain COMPARISON: April 26, 2019 ultrasound TECHNIQUE: Magnetic resonance cholangiogram was performed. Mip reconstruction performed FINDINGS: Images are degraded by patient motion artifact. Filling defects within the gallbladder indicate stones. Mild dilatation of the common bile duct. An abrupt cut off of caliber within the distal common bile d uct probably indicates a stone Pancreatic duct is normal caliber IMPRESSION: Cholelithiasis Mild dilatation of the common bile duct. Choledocholithiasis suspected
[2019-04-27] MEDS ORDERED: MORPHINE 2 MG/ML SYR IV PRN (12:42)
--- NOTE | 2019-04-27 13:32 | CON ---
Date of Consultation: 04/27/2019 Diagnoses: Acute cholecystitis, symptomatic cholelithiasis. History Of Present Illness: This is the case of a -[id number]-rmw patient, comes to us with epig astric right upper quadrant pain radiating to the back associated with nausea and vomiting. She is a bout 6 weeks . During the she was told, she had gallbladder disease. She was tr edda to wait. Last night, the pain got worse and she decided to come to the ER. Eventually, she is trying to go back home to trying to see if she can improve on her own but she could not take it and i nitially she was deciding to leave and then she decided to stay for cholecystectomy. Surgical consul t was obtained. She denies any dysuria, hematuria, hematochezia, or melena. Denies any recent trave ling out of the country. Denies any family member sick at home. Allergies: NONE. Social History: She does not smoke. She does not drink alcohol. Medications: vitamins. Family History: Diabetes. Review of Systems: Ten points otherwise unremarkable. Physical Examination: General: Patient is awake and alert. HEENT: Pupils are equal and reactive, anicteric. Neck: Supple. Chest: Clear. Abdomen: Right upper quadrant epigastric tenderness with Hanson sign positive. The rest of the abdo men is soft, depressible. Breasts: Deferred. Pelvic: Deferred. Rectal: Deferred. Extremities: Good capillary refill. Laboratory Data: Blood work shows WBC count of 9.7, hemoglobin of 13.4, creatinine is 1.06 and gluco se 107. AST is 16, ALT 21, alkaline phosphatase 80, lipase 90. UA shows, glucose negative. Wbc 5-1 0. Ul[address] interpreted by Dr[address] Walters shows . Common bile duct upper limits size. MRCP done, interpreted by Dr. Garcia as a suspected. Assessment And Plan: 24-year-old patient, Rosalia Sheehan with stone, in that case hina barnhart once again suggest to the primary doctor the need for a GI consult to clarify this. The patient wa s fully explained the options of laparoscopic, possible open cholecystectomy with benefits, alternati ves, and risks including, but not limited to infection, bleeding, damage to adjacent structures, anes thesia complication, cholelithiasis, bile leak, pancreatitis, KS and even . She understands thi s may not relieve the symptoms. She might need more than 1 surgical intervention. SUNG/SALVATORE Voice ID: [id number] Report ID: [id number]
[2019-04-27] MEDS ORDERED: ENOXAPARIN 40 MG/0.4 ML SQ SCH (17:00)
[2019-04-27] MEDS ORDERED: ENOXAPARIN 30 MG/0.3 ML SQ SCH ×2 (17:00)
[2019-04-27 20:08] LABS: Protime INR 1.11
[2019-04-28] MEDS: METRONIDAZOLE 500mg IVPB 500 MG/100 ML BAG IV SCH ×3 (00:01→14:11)
[2019-04-28] MEDS: NA CHLORIDE 0.9% 1,000 ML IV SCH ×3 (00:02→10:44)
[2019-04-28 08:44] VITALS: TEMP 98.3
[2019-04-28] MEDS ORDERED: NA CHLORIDE 0.9% 500 ML IV ONE (09:09)
[2019-04-28 10:43] VITALS: BP 143/81
--- NOTE | 2019-04-28 13:05 | P.PN ---
Subjective Date of Service: 04/28/19 Chief Complaint: Abdominal pain/cholelithiasis Patient seen and examined at bedside with RN. Chart reviewed. Case discussed with GI at this morning. Patient is pending ERCP. Endoscopy suite is currently closed. Attempt to transfer the patient to get a ERCP done for await endoscopy suite to open whichever occurs 1st. Patient denies having any nausea vomiting abdominal pain. Notified regarding the plan. Review of Systems 10-point ROS is otherwise unremarkable Physical Examination - Vital Signs Temperature: 98.3 F Blood Pressure: 143/81 Pulse: 36 Respirations: 18 Pulse Ox (%): 97 - Physical Exam General: Alert, In no apparent distress HEENT: Atraumatic, PERRLA, EOMI Neck: Supple, JVD not distended Respiratory: Clear to auscultation bilaterally, Normal air movement Cardiovascular: Regular rate/rhythm, Normal S1 S2 Gastrointestinal: Normal bowel sounds, No tenderness Musculoskeletal: No tenderness Integumentary: No rashes Neurological: Normal speech, Normal tone, Normal affect Lymphatics: No axilla or inguinal lymphadenopathy - Studies Medications List Reviewed: Yes Assessment And Plan - Current Problems (Diagnosis) (1) Choledocholithiasis Current Visit: Yes Status: Acute Plan: Choledocholithiasis with a right upper quadrant pain 6 weeks -MRCP consistent with dilated common bile duct with possible stricture versus stone -GI has been consulted. Appreciate recommendation -plan for ERCP today given the availability of the endoscopy (2) Hx of acute cholecystitis Current Visit: Yes Status: Acute Plan: History of acute cholecystitis during treated conservatively with IV fluids and antibiotics -now with choledocholithiasis will get ERCP done here in the hospital -general surgery is consulted. Appreciate recommendation (3) Normal vaginal delivery Onset Date: 01/16/16 Current Visit: No Status: Acute Plan: Status post 6 weeks of normal vaginal delivery - Plan Pending clinical improvement Discharge Plan: Home Plan to discharge in: Greater than 2 days - Code Status/Comfort Care Code Status Assessed: Yes Critical Care: No
--- NOTE | 2019-04-28 14:52 | EKG ---
Test Date: 2019-04-28 Test Time: 09:20:27 [employer] Dist[employer]: [employer] MEASUREMENT RESULTS: Intervals: Rate: 43 CT: 152 QRSD: 96 QT: 466 QTc: 393 [place]: P: 61 CT: 152 QRS: 88 T: 76 INTERPRETIVE STATEMENTS: Marked sinus bradycardia with marked sinus arrhythmia Abnormal ECG No previous ECG available for comparison Electronically Signed On 04-28-19 14:51:19 CDT by Prasanth Lewis
--- NOTE | 2019-04-28 15:14 | ECHO ---
HEIGHT: 5 ft 3 in WEIGHT: 165 lb 0 oz DATE OF STUDY: 04/28/[address]: Crys Coronel MD 2-DIMENSIONAL: YES M.MODE: YES DOPPLER: YES COLOR FLOW: YES TDS: NO PORTABLE: NO DEFINITY: NO BUBBLE STUDY: NO DIAGNOSIS: BRADYCARDIA CARDIAC HISTORY: CATHERIZATION: NO SURGERY: NO PROSTHETIC VALVE: NO PACEMAKER: NO MEASUREMENTS (cm) DIASTOLIC (NORMALS) SYSTOLIC (NORMALS) IVSd 0.9 (0.6-1.2) LA Diam 3.8 (1.9-4.0) LVEF 69% LVIDd 4.5 (3.5-5.7) LVIDs 2.8 (2.0-3.5) %FS 39% LVPWd 0.9 (0.6-1.2) Ao Diam 2.7 (2.0-3.7) 2 DIMENSIONAL ASSESSMENT: RIGHT ATRIUM: NORMAL LEFT ATRIUM: NORMAL RIGHT VENTRICLE: NORMAL LEFT VENTRICLE: NORMAL TRICUSPID VALVE: NORMAL MITRAL VALVE: NORMAL PULMONIC VALVE: NORMAL AORTIC VALVE: NORMAL PERICARDIAL EFFUSION: NONE AORTIC ROOT: NORMAL LEFT VENTRICULAR WALL MOTION: NORMAL DOPPLER/COLOR FLOW: NORMAL COMMENTS: NORMAL 2D ECHOCARDIOGRAM WITH DOPPLER. NO WALL MOTION ABNORMALITY. NO EFFUSION. TECHNOLOGIST: Ishmael RUBI
--- NOTE | 2019-04-28 18:10 | P.DS ---
Admission Date: 04/28/19 Discharge Date: 04/28/19 Disposition: TRANSFER TO [facility] Discharge Condition: GOOD Reason for Admission: Abdominal pain/cholelithiasis - Problems (1) Choledocholithiasis Status: Acute (2) Hx of acute cholecystitis Status: Acute (3) Normal vaginal delivery Onset Date: 01/16/16 Status: Acute Brief History of Present Illness: Patient is a 24-year-old female who comes into the hospital with abdominal discomfort. Patient is 6 weeks . She was diagnosed with cholelithiasis with gallbladder distention during the middle of her . However, in light of the fact that she was conservative management was performed at that time. Patient has done well in the interim. She gave to a healthy boy. Her pain started 24 hr ago. She initially came into the ER but had told them she was going to leave. She was almost out of the hospital when her pain suddenly returned. She decided to stay for surgical evaluation. Hospital Course: Overall during the hospital stay patient was stable The patient was initially admitted to the hospital for cholecystitis possible choledocholithiasis. MRCP confirmed CBD dilation. GI and general surgery were consulted. GI had schedule patient for a ERCP however since the endoscopy was unavailable patient was referred over to transferred for higher level of care. Patient was accepted at home on home and thus was transferred there for further care. Vital Signs/Physical Exam: Temp Pulse Resp BP Pulse Ox 98.3 F 36 L 18 143/81 H 97 04/28/19 13:06 04/28/19 13:06 04/28/19 13:06 04/28/19 13:06 04/28/19 13:06 General: Alert, In no apparent distress HEENT: Atraumatic, PERRLA, EOMI Neck: Supple, JVD not distended Respiratory: Clear to auscultation bilaterally, Normal air movement Cardiovascular: Regular rate/rhythm, Normal S1 S2 Gastrointestinal: Normal bowel sounds, No tenderness Musculoskeletal: No tenderness Integumentary: No rashes Neurological: Normal speech, Normal tone, Normal affect Lymphatics: No axilla or inguinal lymphadenopathy Laboratory Data at Discharge: WBC 9.7 K/uL (4.3-10.9) 04/26/19 19:11 Hgb 13.4 g/dL (12.0-15.0) 04/26/19 19:11 Hct 40.0 % (36.0-45.0) 04/26/19 19:11 Plt Count 288 K/uL (152-406) 04/26/19 19:11 PT 13.1 SECONDS (9.5-12.5) H 04/27/19 19:53 INR 1.11 04/27/19 19:53 APTT 30.3 SECONDS (24.3-36.9) 04/27/19 19:53 Sodium 142 mmol/L (136-145) 04/26/19 19:11 Potassium 4.0 mmol/L (3.5-5.1) 04/26/19 19:11 BUN 12 mg/dL (7-18) 04/26/19 19:11 Creatinine 1.10 mg/dL (0.55-1.3) 04/26/19 19:11 Glucose 107 mg/dL (74-106) H 04/26/19 19:11 Total Bilirubin 0.5 mg/dL (0.2-1.0) 04/26/19 19:11 AST 16 U/L (15-37) 04/26/19 19:11 ALT 21 U/L (12-78) 04/26/19 19:11 Alkaline Phosphatase 80 U/L (45-117) 04/26/19 19:11 Lipase 90 U/L (73-393) 04/26/19 19:11 Home Medications: Pnv#67/Iron Ps/FA Cmb#1/Dha [Vitafol Ultra Softgel] 1 cap PO BID 04/27/19 Diet: Regular Activity: Ad melany Followup: Sebastian Murphy MD [ACTIVE - CAN ADMIT] - 1 Week
--- NOTE | 2019-04-28 20:41 | CON ---
Date of Consultation: 04/28/2019 Reason For Consultation: Patient was admitted to Dr. Coronel's service on . I was asked to see her on 04/28/2019 for cardiac clearance because of bradycardia. History Of Present Illness: Ms. Sheehan is 24 years old, very healthy, has no past medical history . She just had a baby a few weeks ago. She has another child of 3 years old. Has been very healthy and fairly athletic in the past. Came in with cholecystitis and common bile duct occlusion. Appare ntly, there was a plan to transfer her to [facility] for surgery. The concern was, she was having s ome episodes of bradycardia as low as 30, usually with her pain from her gallbladder. Her baseline w as 50 when she came in. With her bradycardia, she was asymptomatic. She has a normal blood pressure . She denies any syncope, dizziness, chest pain, shortness of breath, or palpitations. Denies any n ausea, vomiting, or diaphoresis with her heart rate being low. By the time I saw her, she had an ech ocardiogram that was normal. TSH was normal. Past Medical History: Negative. Allergies: NONE. Medications: At home are none. Review of Systems: Negative. Social History: Negative. Physical Examination: Vital Signs: Stable. She was afebrile. HEENT: Normal. Cardiac: Revealed a regular rhythm and rate. No murmurs, gallops, or rubs. Lungs: Clear to auscultation and percussion. Diagnostic Data: Within normal limits except for her gallbladder. Chest x-ray was normal. Her EKG showed sinus bradycardia. Echocardiogram was normal. Impression And Plan: Bradycardia, probably baseline, may be exacerbated by vagal reaction because of her pain. Normal echo, normal TSH, normal blood pressure, and no symptoms with her bradycardia. I think she is cleared to undergo her surgery. No further cardiac workup is necessary. No treatment i s necessary at this point. ENRIQUE/SALVATORE Voice ID: [id number] Report ID: [id number]
== END 2019-04-28 16:28 | disposition short-term general hospital (02) | DRG 776 ==
LOC: ER 18:53 → UNDOADMOB 22:11 → ERHOLD 22:11 → 4TH 04-27 00:13 → OBSVTOIN 04-28 14:16
PROVIDERS: ADMIT Hospitalist; ATTEND Family Medicine
DX: O99.63 Diseases of the digestive system complicating the puerperium (principal); K80.60 Calculus of gallbladder and bile duct with cholecystitis, unspecified, without obstruction; O99.89 Other specified diseases and conditions complicating pregnancy, childbirth and the puerperium; R00.1 Bradycardia, unspecified; Z87.891 Personal history of nicotine dependence
CPT/HCPCS: 36415; 74181; 76705; 80048; 80076; 81003; 81015; 81025; 83690; 84443; 85025; 85610; 85730; 87086; 87088; 93005; 93306; 96365; 96375; 99284; G0378; J2405; J2543; J7030

== ENCOUNTER 2021-10-29 23:19 | Inpatient (IN) | payer OTHER ==
[2021-10-29] MEDS ORDERED: METHYLERGONOVINE 0.2MG/ML AMP IM PRN (23:55)
[2021-10-29] MEDS ORDERED: BUTORPHANOL 1 MG/ML INJ IV PRN (23:55)
[2021-10-29] MEDS ORDERED: Ringers Lactate 1,000 ML IV PRN (23:55)
[2021-10-29] MEDS ORDERED: Ringers Lactate 1,000 ML IV SCH (23:55)
[2021-10-29] MEDS ORDERED: CARBOPROST TROME 250 MCG/ML IM PRN (23:55)
[2021-10-29] MEDS ORDERED: PROMETHAZINE INJ 25 MG/ML AMP IM PRN (23:55)
--- OUTSIDE RECORDS SUMMARY | 2021-10-30 00:03 | XMS REPORT | Continuity of Care Document ---
:1995 Author Organization [facility] t Address [address] [place] [address] Dr. Phillip. [address] [place] [id number] Care Team Providers Name Role Phone Unavailable Unavailable Unavailable Problems This patient has no known problems. Allergies, Adverse Reactions, Alerts This patient has no known allergies or adverse reactions. Medications This patient has no known medications. Procedures This patient has no known procedures. Results This patient has no known results.
[2021-10-30 00:21] LABS: Urine Appearance CLOUDY (Clear); Urine Blood NEGATIVE (Negative); Urine Color DK YELLOW (Yellow); Urine Glucose NEGATIVE (Negative); Urine Protein 1+ (Negative); Urine Specific Gravity >=1.030 (1.005-1.030)
[2021-10-30 00:23] LABS: Urine Microscopic Reflex ORDER UMIC
[2021-10-30 00:29] LABS: Absolute Lymphocytes (CBC) 1.6 K/uL (0.7-4.9); Hematocrit 33.7 % (36.0-45.0); Lymphocytes % 20.7 % (15.3-44.8); MPV 10.1 fL (7.6-11.3)
[2021-10-30 00:30] LABS: Urine Bilirubin NEGATIVE (Negative)
[2021-10-30] MEDS ORDERED: FAMOTIDINE 20 MG/2 ML VIAL IV ONE (00:44)
[2021-10-30] MEDS ORDERED: METOCLOPRAMIDE 10 MG/2mL INJ ONE (00:44)
[2021-10-30] MEDS ORDERED: NA CIT/CITRIC AC 30 ML ORAL UDC ONE (00:44)
[2021-10-30] MEDS ORDERED: CEFAZOLIN/SWI 2gm 0 GM/0 ML SYR ONE (00:44)
[2021-10-30 00:48] LABS: RPR (Rapid Plasma Reagin) NON-REACT (NON-REACT)
[2021-10-30 00:54] LABS: Urine Bacteria <20 /HPF (<20); Urine Mucus 1+ /HPF (NONE SEEN); Urine RBC <5 /HPF (NONE SEEN); Urine Urothelial Cells <5 /HPF (NONE SEEN)
[2021-10-30] MEDS ORDERED: MAGNESIUM HYDROXIDE 8% 30 ML PO ONE (01:00)
[2021-10-30] MEDS ORDERED: CEFAZOLIN/NS 1gm 1 GM/50 ML BAG IVPB ONE (03:00)
[2021-10-30] MEDS ORDERED: OXYTOCIN/LR 20 UNIT/1,000 ML BAG IV SCH ×2 (04:00→12:00)
[2021-10-30 06:33] VITALS: BMI 32.9
[2021-10-30] MEDS ORDERED: LIDOCAINE 1% 20 ML MDV ONE (07:30)
--- NOTE | 2021-10-30 07:52 | RAD REPORT ---
EXAM DESCRIPTION: RAD - Abdomen 1 View (KUB) - 10/30/2021 2:28 am CLINICAL HISTORY: presentation COMPARISON: No comparisons FINDINGS: Fetus in cephalic position. Surgical clips in right upper quadrant . IMPRESSION: Fetus in cephalic position.
--- NOTE | 2021-10-30 07:53 | PREOPHP ---
Date of Admission: 10/30/2021 History Of Present Illness: Rosalia Sheehan is a 26-year-old, 3, para 2, at 37 weeks 1 da y, came in early labor. Initially, the nurse's exam reported the patient to be 4 cm and sky regularly. Half hour later, the nurse called back and said the baby was footling breech. I came and checked the patient. She was cephalic, x-ray confirmed that. The cervix was very posterior about 3 cm, which is same as she was in the office and the patient is extremely constipated, says she has no t gone to the restroom and had a bowel movement in many days. We have given her milk of magnesia, bu t she has not had a bowel movement yet. After she delivers the baby, we will give her GoLYTELY to he . This morning, she is sky on her own. She has made progress. She is now 4 cm, 60% to 70 % effaced, vertex, -1 station, rupture of membranes, clear fluid. We will start Pitocin to augment l abor. She is beta strep negative. Family History: Noncontributory to the present admission. Allergies: SHE HAS NO ALLERGIES. Medications: She was taking vitamins and iron. Social History: Does not smoke. Physical Examination: HEENT: Clear. Pupils equal, round, and reactive to light and accommodation. Conjunctivae well perf used. No oral, lingual, or buccal lesions. Chest and Lungs: Clear. Heart: Without murmurs, thrills, heaves, or rubs. Breasts: Not examined, but on previous visits without masses. Abdomen: Term size. Extremities: Clear without any edema, cyanosis, or clubbing. Assessment And Plan: We will admit for stabilization, augmentation. The patient states that she is going to try to go natural other than IV medications. She should go into more active labor pattern at this point. BRENDA/SALVATORE Voice ID: [id number]
[2021-10-30 08:14] LABS: Absolute Lymphocytes (CBC) 1.4 K/uL (0.7-4.9); Hematocrit 30.4 % (36.0-45.0); Lymphocytes % 22.1 % (15.3-44.8); MPV 9.5 fL (7.6-11.3); RBC Red Blood Cell Count 3.43 M/uL (3.86-4.86)
--- NOTE | 2021-10-30 10:51 | PREOPHP ---
Date of Admission: 10/30/2021 History Of Present Illness: 24-year-old 4, para 3, 39 weeks gestation for induction. Pros a nd cons of this were thoroughly Ndiscussed prior to admission. Family History: Noncontributory. Past Medical History: No allergies. N Past Surgical History: No previous surgeries. Medications: She is taking folic acid plus or vitamins prior to admission. Social History: Does not smoke. Physical Examination: HEENT: Clear. Pupils equal, round, reactive to light and accommodation. Conjunctivae well perfused. No oral, lingual, or buccal lesions. Chest and lungs: Clear. Heart: Has been without murmurs, thr ills, heaves, or rubs. Breasts: Without masses on previous visit. Extremities: Clear without edema, cyanosis, or clubbing. Assessment And Plan: The patient is 3.5 to 4 cm, 60% effaced, -1 station, rupture of membranes, rehan r fluid. She is sky regularly. Probably, will be requesting epidural anesthesia which will be administered when she gets to about 5 cm. Anticipate rather rapid labor, once she starts getting into more active labor pattern. The patient is positive for COVID, although she is completely asympt omatic. Rh positive, immune to rubella, and strep negative. Admission and labor talk given. Anticipate delivery sometime later today. BRENDA/SALVATORE Voice ID: [id number]
--- NOTE | 2021-10-30 10:53 | PREOPHP ---
Date of Admission: 10/30/2021 History Of Present Illness: 26-year-old 3, para 2, at 37 weeks plus strep negative. Said lesli retana started sky this evening about 0830 hours after she had eaten her chicken nuggets, came to Labor and Delivery, initially was thought to be breech. She is 3.5 cm, still posterior, baby is vert ex. She is extremely constipated and there was rough stool in the rectum that caused nurses think lesli retana was feeling the foot. The patient has not had a bowel movement in several days. We will give her some laxative, admitted for Labor. Family History: Noncontributory. Allergies: NO ALLERGIES. Past Surgical History: No past surgeries. Medications: vitamins prior to admission. Social History: Patient does not smoke. Physical Examination: HEENT: Clear. Pupils reactive to light and accommodation. Conjunctivae well perfused. No oral, brandt gual, or buccal lesions. Chest: Lungs clear. Heart: Without murmurs. Breasts: Not examined, but on previous visits, without masses. Abdomen: Term. Extremities: Clear without edema, cyanosis, or clubbing. Pelvic: Exam as stated. Assessment And Plan: The patient is sky mildly. We will admit for stabilization and then de rafaly. BRENDA/SALVATORE Voice ID: [id number]
[2021-10-30] MEDS ORDERED: BISACODYL 10 MG RECTAL SUPP RC PRN (11:03)
[2021-10-30] MEDS ORDERED: IBUPROFEN 600 MG TAB PO PRN (11:03)
[2021-10-30] MEDS ORDERED: DOCUSATE NA/SENNA CONC 1 TAB PO PRN (11:03)
[2021-10-30] MEDS ORDERED: DIPHENHYDRAMINE 25 MG TAB/CAP PO PRN (11:03)
[2021-10-30] MEDS ORDERED: Oxycodone HCl/Acetaminophen 1 TAB TAB PO PRN ×2 (11:03)
[2021-10-30 12:06] LABS: Urine Appearance CLEAR (Clear); Urine Blood NEGATIVE (Negative); Urine Color DK YELLOW (Yellow); Urine Glucose NEGATIVE (Negative); Urine Protein 1+ (Negative); Urine Specific Gravity >=1.030 (1.005-1.030)
[2021-10-30 12:08] LABS: Urine Bilirubin NEGATIVE (Negative)
[2021-10-30 12:18] LABS: Urine Bacteria <20 /HPF (<20); Urine Mucus MOD /HPF (NONE SEEN); Urine RBC <5 /HPF (NONE SEEN)
--- NOTE | 2021-10-30 13:08 | OP ---
Surgeon: Michael Beltran MD Procedure In Detail: A 26-year-old 3, para 2, 37 weeks 1 day on admission, 37 weeks 2 days o n delivery, went to spontaneous labor. This morning was 4 cm, rupture of membranes, clear fluid. Li ght Pitocin augmentation. Received two 1 mg doses of Stadol IV during the labor, Phenergan 25 mg. r h positive, immune to rubella, negative strep, negative COVID. Went rapidly to complete. Second sta ge of about 10 minutes. Spontaneous vaginal delivery of an estimated 7-pound plus male infant. Apga rs 9 and 9. No episiotomy. No laceration. Schultze delivery of the placenta, which was inspected a nd noted to be intact and normal. 300 cc or less blood loss. The patient tolerated all procedures w ell. Final Diagnoses: Term intrauterine at 37 weeks 2 days at the time of delivery, spontaneous labor, vaginal delivery. BRENDA/SALVATORE Voice ID: [id number] Report ID: [id number]
[2021-10-30] MEDS: ACETAMINOPHEN 500 MG TAB PO PRN (19:50)
[2021-10-30 22:33] LABS: RPR (Rapid Plasma Reagin) NON-REACT (NON-REACT)
[2021-10-31 07:43] VITALS: BP 128/67; TEMP 97.3
[2021-10-31] MEDS: ACETAMINOPHEN 500 MG TAB PO PRN (08:00)
--- NOTE | 2021-10-31 08:24 | DS ---
Hospital Course: 26-year-old 3, para 2, came in spontaneous labor at 37 weeks 1 day, deliver ed at 37 weeks 2 days, 7 pounds 14 ounces male, 's 9 and 9. No episiotomy. No laceration. Christin ultze delivery of the placenta. Estimated blood loss less than 300 cc. Rh positive, immune to rubel la, negative strep, negative COVID. , afebrile, ambulating, voiding. Lochia is normal. Wi ll be dismissed later today. To report back to my office in 6 weeks for followup. To report any tem perature elevation of 100 degrees or greater, severe pain, heavy bleeding, or any other type of abnor malities. No request for analgesics on dismissal. Immunizations have been offered during the pregna ncy and again offered Tdap, she says she has had with her other pregnancies. COVID shot, she knows s he should get outside of the hospital and flu shots offered. Final Diagnoses: Intrauterine gestation, spontaneous labor and delivery at 37 weeks and 2 days. Imm unizations offered. BRENDA/SALVATORE Voice ID: [id number] Report ID: [id number]
== END 2021-10-31 13:00 | disposition home or self-care (01) | DRG 807 ==
LOC: L&D 23:19 → 2ND-WC 10-30
PROVIDERS: ADMIT Specialist; ATTEND Specialist
PROC: 10E0XZZ Delivery of Products of Conception, External Approach (ICD-10-PCS; principal; 2021-10-30)
PROC: 10907ZC Drainage of Amniotic Fluid, Therapeutic from Products of Conception, Via Natural or Artificial Opening (ICD-10-PCS; 2021-10-30)
DX: O80 Encounter for full-term uncomplicated delivery (principal); Z37.0 Single live birth; Z3A.37 37 weeks gestation of pregnancy; Z20.822 Contact with and (suspected) exposure to COVID-19
CPT/HCPCS: 36415; 74018; 81001; 81003; 81015; 85025; 86592; 86850; 86900; 86901; 87340; 99218; G0433; J0595; J0690; J2210; J2550; J2590; J2765; J7120; U0003

== ENCOUNTER 2021-11-05 14:59 | Emergency (ER) | payer OTHER ==
--- OUTSIDE RECORDS SUMMARY | 2021-11-05 15:02 | XMS REPORT | Continuity of Care Document ---
:1995 Author Organization [facility] t Address [address] [place] [address] Dr. Phillip. [address] [place] [address] Care Team Providers Name Role Phone Unavailable Unavailable Unavailable Problems This patient has no known problems. Allergies, Adverse Reactions, Alerts This patient has no known allergies or adverse reactions. Medications This patient has no known medications. Procedures This patient has no known procedures. Results This patient has no known results.
--- NOTE | 2021-11-05 15:31 | EDPHYS ---
Physician Documentation [facility] Name: Rosalia Sheehan Age: 26 yrs Sex: Female : 1995 Arrival Date: 11/05/2021 Time: 15:00 Bed 5 Private MD: Michael Campos B ED Physician Felicia Coronel HPI: 11/05 15:44 This 26 yrs old Female presents to ER via Ambulatory with complaints of kb Hemorrhoids. 15:44 The patient presents to the emergency department with pain in the rectal area, that is kb moderate. Onset: The symptoms/episode began/occurred 3 day(s) ago. Context: the patient has a known history of hemorrhoids. Modifying factors: The symptoms are alleviated by nothing, The symptoms are aggravated by bowel movement, movement. Associate signs and symptoms: The patient has no apparent associated signs or symptoms. The patient has not experienced similar symptoms in the past. The patient has been recently seen by a physician: Dr. campos earlier today, with similar presenting complaints, and was sent to the [facility] Emergency Department for further evaluation. Historical: - Allergies: 15:49 No Known Allergies; iw ROS: 15:43 Constitutional: Negative for fever, chills, and weight loss. kb 15:43 Abdomen/GI: Positive for rectal pain. 15:43 All other systems are negative. Exam: 15:43 Constitutional: This is a well developed, well nourished patient who is awake, alert, kb and in no acute distress. Head/Face: Normocephalic, atraumatic. ENT: Moist Mucous membranes Respiratory: Respirations even and unlabored. No increased work of breathing. Talking in full sentences Skin: Warm, dry with normal turgor. Normal color. MS/ Extremity: Pulses equal, no cyanosis. Neurovascular intact. Full, normal range of motion. Neuro: Awake and alert, GCS 15, oriented to person, place, time, and situation. Moves all extremities. Normal gait. Psych: Awake, alert, with orientation to person, place and time. Behavior, mood, and affect are within normal limits. 15:43 Abdomen/GI: Rectal exam: hemorrhoid(s), external, with inflammation, with pain, without bleeding, without thrombosis. MDM: 15:18 Patient medically screened. kb 15:41 Data reviewed: vital signs, nurses notes. Data interpreted: Pulse oximetry: on room air kb is 100 %. Interpretation: normal. Counseling: I had a detailed discussion with the patient and/or guardian regarding: the historical points, exam findings, and any diagnostic results supporting the discharge/admit diagnosis, the need for outpatient follow up, a general surgeon, to return to the emergency department if symptoms worsen or persist or if there are any questions or concerns that arise at home. ED course: 2 large hemorrhoids noted to be pink and soft. No thrombosis noted. Educated on sitz baths and need for surgical follow up. . Administered Medications: No medications were administered Disposition: 11/06 04:37 Co-signature as Attending Physician, Felicia Coronel MD I agree with the assessment and sp3 plan of care. Disposition Summary: 11/05/21 15:30 Discharge Ordered Location: Home kb Condition: Stable kb Diagnosis - Other hemorrhoids kb Followup: kb - With: Emergency Department - When: As needed - Reason: Worsening of condition Followup: kb - With: Private Physician - When: 2 - 3 days - Reason: Recheck today's complaints, Continuance of care, Re-evaluation by your physician Discharge Instructions: - Discharge Summary Sheet kb - Hemorrhoids, [id number] kb Forms: - Medication Reconciliation Form kb - Thank You Letter kb - Antibiotic Education kb - Prescription Opioid Use kb Prescriptions: - Anusol-HC 2.5 % Topical cream with perineal applicator - apply 1 application by TOPICAL route 2 times per day; 1 tube; Refills: 0, kb Product Selection Permitted Signatures: Jerri Hand FNP-C FNP-Lin Bishop, BRADLEY RN Felicia Gaona MD MD sp3
--- NOTE | 2021-11-05 15:31 | ER ---
Nurse's Notes [facility] Name: Rosalia Sheehan Age: 26 yrs Sex: Female : 1995 Arrival Date: 11/05/2021 Time: 15:00 Bed 5 Private MD: Michael Beltran B Diagnosis: Other hemorrhoids Presentation: 11/05 15:23 Chief complaint: Patient states: was sent by Dr. Beltran , is 6 days post and has iw two large hemorrhoids that need to be evaluated. 15:24 Coronavirus screen: At this time, the client does not indicate any symptoms associated iw with coronavirus-19. Ebola Screen: Patient negative for fever greater than or equal to 101.5 degrees Fahrenheit, and additional compatible Ebola Virus Disease symptoms Patient denies exposure to infectious person. Patient denies travel to an Ebola-affected area in the 21 days before illness onset. No symptoms or risks identified at this time. Initial Sepsis Screen: Does the patient meet any 2 criteria? No. Patient's initial sepsis screen is negative. Does the patient have a suspected source of infection? No. Patient's initial sepsis screen is negative. Risk Assessment: Do you want to hurt yourself or someone else? Patient reports no desire to harm self or others. Onset of symptoms was November 05, 2021. 15:24 Method Of Arrival: Ambulatory iw 15:24 Acuity: CESAR 5 iw Triage Assessment: 15:40 General: Appears in no apparent distress. iw 15:45 General: Behavior is calm, cooperative. iw Historical: - Allergies: 15:49 No Known Allergies; iw Screenin:40 Abuse screen: Denies threats or abuse. Denies injuries from another. Nutritional iw screening: No deficits noted. Tuberculosis screening: No symptoms or risk factors identified. Fall Risk None identified. Assessment: 15:30 General: Appears in no apparent distress. Pain: Complains of pain in gluteal cleft. iw Neuro: Level of Consciousness is awake, alert, obeys commands, Oriented to person, place, time, situation, Moves all extremities. Cardiovascular: Patient's skin is warm and dry. Respiratory: Respiratory effort is even, unlabored, Respiratory pattern is. Derm: Skin is intact, is healthy with good turgor. Musculoskeletal: Range of motion: intact in all extremities. ED Course: 15:00 Patient arrived in ED. as 15:01 Michael Beltran MD is Private Physician. as 15:17 Jerri Hand FNP-C is [facility]. kb 15:17 Felicia Coronel MD is Attending Physician. kb 15:21 Shanika Mcgill, RN is Primary Nurse. vg1 15:25 Triage completed. iw 15:45 No provider procedures requiring assistance completed. Patient did not have IV access iw during this emergency room visit. 15:46 Lin Bartlett, RN is Primary Nurse. iw 15:46 Arm band placed on. iw Administered Medications: No medications were administered Outcome: 15:30 Discharge ordered by MD. kb 15:45 Discharged to home ambulatory. iw 15:45 Condition: good 15:45 Discharge instructions given to patient, Instructed on discharge instructions, follow up and referral plans. Demonstrated understanding of instructions, follow-up care. 15:46 Patient left the ED. iw Signatures: Jerri Hand FNP-C [employer] Aj as Lin Bartlett, RN RN iw Shanika Mcgill RN RN vg1 Corrections: (The following items were deleted from the chart) 15:25 15:23 Chief complaint: Patient states: was sent by Dr. Beltran , is 6 days post iw and iw 15:46 15:24 Acuity: CESAR 3 iw iw
== END 2021-11-05 15:46 | disposition home or self-care (01) ==
LOC: ER 14:59
DX: K64.8 Other hemorrhoids (principal)
CPT/HCPCS: 99281